=== PATIENT | female | born 1945 | race Caucasian/White ===

== ENCOUNTER → 2017-08-29 | Outpatient (CLI) | payer OTHER ==
[~2017-08-29] MED LIST: ASPIR 8181 MG PO; ATORVASTATIN CA40 MG PO; CEFUROXIME250 MG PO; GLUCOTROL5 MG PO; METFORMIN HCL500 MG PO
== END ==
LOC: M.ULTRA 07:20
DX: M79.89 Other specified soft tissue disorders (principal); M79.661 Pain in right lower leg; M79.662 Pain in left lower leg

== ENCOUNTER → 2019-02-27 | Outpatient (CLI) | payer OTHER | LOC: M.ULTRA 13:00 | DX: R60.0 Localized edema (principal) ==